=== PATIENT | male | born 1990 | race Hispanic/Latino ===

== ENCOUNTER 2017-07-20 12:40 | Emergency (ER) | payer MEDICAID, OTHER | END 2017-07-20 13:20 | disposition home or self-care (01) | LOC: EDH 12:40 | DX: F41.1 Generalized anxiety disorder (principal); Z72.0 Tobacco use; Z90.49 Acquired absence of other specified parts of digestive tract ==

== ENCOUNTER 2017-07-29 10:06 | Emergency (ER) | payer MEDICAID, OTHER | END 2017-07-29 11:33 | disposition home or self-care (01) | LOC: EDH 10:06 | DX: F41.1 Generalized anxiety disorder (principal); F45.8 Other somatoform disorders; Z72.0 Tobacco use ==

== ENCOUNTER 2018-01-26 22:28 | Emergency (ER) | payer MEDICAID | END 2018-01-26 23:37 | disposition home or self-care (01) | LOC: EDH 22:28 | DX: L03.316 Cellulitis of umbilicus (principal); F41.9 Anxiety disorder, unspecified; Z90.49 Acquired absence of other specified parts of digestive tract ==

== ENCOUNTER 2018-02-20 15:02 | Emergency (ER) | payer MEDICAID ==
[2018-02-20] MEDS ORDERED: DEXAMETHASONE SOD PHOSPHATE 10MG/ML 1ML VIAL ONE (15:35)
[2018-02-20] MEDS ORDERED: IPRATROPIUM/ALBUTEROL SULFATE 3 ML SOLUTION IH ONE (16:28)
== END 2018-02-20 17:12 | disposition home or self-care (01) ==
LOC: EDH 15:02
DX: J20.9 Acute bronchitis, unspecified (principal); F41.9 Anxiety disorder, unspecified; Z90.49 Acquired absence of other specified parts of digestive tract; Z72.0 Tobacco use
CPT/HCPCS: 71045; 94640; 96372; 99283; J1100

== ENCOUNTER 2019-04-03 12:44 | Emergency (ER) | payer MEDICAID, OTHER ==
[2019-04-03] MEDS ORDERED: MECLIZINE HCL 25 MG TABLET ONE (14:03)
== END 2019-04-03 14:42 | disposition home or self-care (01) ==
LOC: EDH 12:44
DX: S06.0X0A Concussion without loss of consciousness, initial encounter (principal); H81.399 Other peripheral vertigo, unspecified ear; F41.9 Anxiety disorder, unspecified; Z72.0 Tobacco use; X58.XXXA Exposure to other specified factors, initial encounter; Y93.89 Activity, other specified; Y92.89 Other specified places as the place of occurrence of the external cause; Y99.8 Other external cause status
CPT/HCPCS: 99282

== ENCOUNTER 2019-04-05 20:38 | Emergency (ER) | payer MEDICAID ==
[2019-04-05] MEDS ORDERED: KETOROLAC TROMETHAMINE 60 MG/2 ML VIAL ONE (23:06)
[2019-04-05] MEDS ORDERED: DEXAMETHASONE SOD PHOSPHATE 10MG/ML 1ML VIAL IM ONE (23:12)
== END 2019-04-06 00:10 | disposition home or self-care (01) ==
LOC: EDH 20:38
DX: M26.69 Other specified disorders of temporomandibular joint (principal); K21.9 Gastro-esophageal reflux disease without esophagitis; Z79.899 Other long term (current) drug therapy; Z90.49 Acquired absence of other specified parts of digestive tract
CPT/HCPCS: 96372 ×2; 99284; J1100; J1885

== ENCOUNTER 2019-05-22 15:03 | Emergency (ER) | payer MEDICAID | END 2019-05-22 15:48 | disposition left against medical advice (07) | LOC: EDH 15:07 | DX: R51 Headache (principal); H53.8 Other visual disturbances; K21.9 Gastro-esophageal reflux disease without esophagitis; Z90.49 Acquired absence of other specified parts of digestive tract; Z53.21 Procedure and treatment not carried out due to patient leaving prior to being seen by health care provider | CPT/HCPCS: 82948 ==

== ENCOUNTER → 2019-05-25 | Outpatient (CLI) | payer MEDICAID | END | disposition home or self-care (01) | LOC: RAH 05-22 12:50 | PROVIDERS: ATTEND Family Medicine | DX: R51 Headache (principal); H53.8 Other visual disturbances | CPT/HCPCS: 70450 ==

== ENCOUNTER 2019-12-17 19:40 | Emergency (ER) | payer MEDICAID ==
[2019-12-17 21:10] LABS: RAPID GROUP A STREP NEGATIVE (NEGATIVE)
[2019-12-17] MEDS ORDERED: ACETAMINOPHEN EXTRA STRENGTH 500 MG TABLET ONE (21:50)
== END 2019-12-17 22:52 | disposition home or self-care (01) ==
LOC: EDH 19:40
DX: J06.9 Acute upper respiratory infection, unspecified (principal); Z20.828 Contact with and (suspected) exposure to other viral communicable diseases; K21.9 Gastro-esophageal reflux disease without esophagitis; I10 Essential (primary) hypertension; Z90.49 Acquired absence of other specified parts of digestive tract; Z72.0 Tobacco use
CPT/HCPCS: 71045; 87426; 87804 ×2; 87880; 99284; U0003

== ENCOUNTER 2023-05-08 13:05 | Emergency (ER) | payer MEDICAID ==
[~2023-05-08] VITALS: Ht 165.1 cm; Wt 122.5 kg
[~2023-05-08 13:05] MED LIST: CYCL10TA16 PO; DICL35CA3 PO
[2023-05-08 15:31] LABS: APPEARANCE,URINE CLEAR (CLEAR); BILIRUBIN,URINE NEGATIVE (NEGATIVE); COLOR,URINE LIGHT-YELLOW (YELLOW); GLUCOSE, URINE (UA) NEGATIVE (NEGATIVE); KETONES,URINE NEGATIVE (NEGATIVE); LEUKOCYTE ESTERASE ,URINE NEGATIVE Leu/uL (NEGATIVE); NITRATE,URINE NEGATIVE (NEGATIVE); OCCULT BLOOD,URINE MODERATE (NEGATIVE); PROTEIN,URINE 300 mg/dL (NEGATIVE); UROBILINOGEN,URINE 0.2 mg/dL (0.2-1.0)
[2023-05-08 15:32] LABS: ADD UA MICROSCOPIC YES; BASOPHILS # (AUTO) 0.05 K/uL (0.00-0.20); BASOPHILS % (AUTO) 0.5 % (0.0-5.0); EOSINOPHILS # (AUTO) 0.13 K/uL (0.00-0.70); EOSINOPHILS % (AUTO) 1.4 % (0.0-8.0); HEMATOCRIT 48.5 % (42-54); IMMATURE GRANULOCYTE ABSOLUTE 0.07 K/uL (0-1); LYMPHOCYTES % (AUTO) 21.2 % (21.0-51.0); MEAN CORPUSCULAR HEMOGLOBIN 28.5 pg (27.0-33.0); MEAN CORPUSCULAR HGB CONC 33.6 g/dL (32.0-36.0); MEAN CORPUSCULAR VOLUME 84.9 fL (79-99); MONOCYTES # (AUTO) 0.7 K/uL (0.1-1.0); MONOCYTES % (AUTO) 7.4 % (3.0-13.0); NEUTROPHILS # (AUTO) 6.5 K/uL (1.8-7.7); NEUTROPHILS % (AUTO) 68.8 % (40.0-77.0); PLATELET COUNT (AUTO) 147 K/uL (130-400); RED BLOOD CELL COUNT(AUTO) 5.71 MIL/uL (4.50-6.20); RED CELL DISTRIBUTION WIDTH 13.4 % (11.0-15.5); WHITE BLOOD COUNT (AUTO) 9.4 K/uL (4.8-10.8)
[2023-05-08 15:35] LABS: BACTERIA,URINE RARE /HPF (None Seen); MUCUS,URINE RARE LPF (None Seen); WBC,URINE 0-1 /HPF (0-1)
[2023-05-08 15:39] LABS: CREATININE 1.3 mg/dL (0.5-1.5); POTASSIUM 3.9 mmol/L (3.5-5.1)
[2023-05-08 15:45] LABS: ALBUMIN 3.5 g/dL (3.5-5.0); BILIRUBIN,TOTAL 0.5 mg/dL (0.2-1.0); TOTAL PROTEIN, SERUM 7.5 g/dL (6.0-8.3)
[2023-05-08] MEDS ORDERED: IOHEXOL-350 75 ML VIAL IV ONE (15:51)
[2023-05-08] MEDS ORDERED: DIPH1TAB PO (16:47)
[2023-05-08 17:01] VITALS: BP 151/98; PULSE 90; RESP 18; O2SAT 99
== END 2023-05-08 17:09 | disposition home or self-care (01) ==
LOC: EDH 13:05
DX: K52.9 Noninfective gastroenteritis and colitis, unspecified (principal); F17.200 Nicotine dependence, unspecified, uncomplicated; Z79.899 Other long term (current) drug therapy; Z90.49 Acquired absence of other specified parts of digestive tract
CPT/HCPCS: 99285; 74177; 80053; 83690; 85025; 81001; 36415; Q9967

== ENCOUNTER 2023-09-11 18:34 | Emergency (ER) | payer MEDICAID, OTHER ==
[~2023-09-11] VITALS: Ht 165.1 cm; Wt 115.2 kg
[~2023-09-11 18:34] MED LIST changes: +DIPH1TAB PO
[2023-09-11 19:42] LABS: BASOPHILS # (AUTO) 0.05 K/uL (0.00-0.20); BASOPHILS % (AUTO) 0.5 % (0.0-5.0); EOSINOPHILS # (AUTO) 0.07 K/uL (0.00-0.70); EOSINOPHILS % (AUTO) 0.7 % (0.0-8.0); HEMATOCRIT 43.7 % (42-54); IMMATURE GRANULOCYTE ABSOLUTE 0.06 K/uL (0-1); LYMPHOCYTES # (AUTO) 1.7 K/uL (1.0-4.8); LYMPHOCYTES % (AUTO) 17.6 % (21.0-51.0); MEAN CORPUSCULAR HEMOGLOBIN 28.9 pg (27.0-33.0); MEAN CORPUSCULAR HGB CONC 33.4 g/dL (32.0-36.0); MEAN CORPUSCULAR VOLUME 86.4 fL (79-99); MONOCYTES # (AUTO) 0.6 K/uL (0.1-1.0); MONOCYTES % (AUTO) 6.1 % (3.0-13.0); NEUTROPHILS # (AUTO) 7.4 K/uL (1.8-7.7); NEUTROPHILS % (AUTO) 74.5 % (40.0-77.0); PLATELET COUNT (AUTO) 115 K/uL (130-400); RED BLOOD CELL COUNT(AUTO) 5.06 MIL/uL (4.50-6.20); WHITE BLOOD COUNT (AUTO) 9.9 K/uL (4.8-10.8)
[2023-09-11 19:52] LABS: CARBON DIOXIDE 26 mmol/L (21-32); CHLORIDE 105 mmol/L (101-111); GLOMERULAR FILTR. RATE CALC 44 mL/min (>90); GLUCOSE,RANDOM 118 mg/dL (70-105); POTASSIUM 3.8 mmol/L (3.5-5.1); SODIUM SERUM 139 mmol/L (136-145); UREA NITROGEN, BLOOD 19 mg/dL (7-18)
[2023-09-11 19:55] LABS: INR <= 0.93 (0.85-1.15); PROTHROMBIN TIME 10.8 SEC (9.6-11.6)
[2023-09-11 19:56] LABS: PARTIAL THROMBOPLASTIN TIME 37.9 SEC (26.3-35.5)
[2023-09-11 20:02] LABS: ALCOHOL, BLOOD < 3 mg/dL (0-10)
[2023-09-11] MEDS ORDERED: IOHEXOL 350 MG/ML 100ML INFUS..BTL IV ONE (21:18)
[2023-09-11] MEDS: 0.9%NACL 1000ML 1,000 ML IV ONE (23:07)
[2023-09-11] MEDS ORDERED: CYCL7.5T27 PO (23:09)
[2023-09-11] MEDS: HYDROCODONE/ACETAMINOPHEN 5/325 MG TAB PO ONE (23:11)
[2023-09-12 00:23] VITALS: BP 133/87; PULSE 84; RESP 17; O2SAT 97
== END 2023-09-12 00:29 | disposition home or self-care (01) ==
LOC: EDH 18:34
DX: S20.212A Contusion of left front wall of thorax, initial encounter (principal); S20.311A Abrasion of right front wall of thorax, initial encounter; R10.84 Generalized abdominal pain; R55 Syncope and collapse; R51.9 Headache, unspecified; Z79.899 Other long term (current) drug therapy; I10 Essential (primary) hypertension; Z90.49 Acquired absence of other specified parts of digestive tract; V89.2XXA Person injured in unspecified motor-vehicle accident, traffic, initial encounter; Y93.I9 Activity, other involving external motion; Y92.488 Other paved roadways as the place of occurrence of the external cause; Y99.8 Other external cause status
CPT/HCPCS: 36415; 70450; 71250; 72125; 74176; 80048; 84484; 85025; 85610; 85730; Q9967

== ENCOUNTER 2024-10-10 11:22 | Emergency (ER) | payer SELFPAY ==
[~2024-10-10] VITALS: Ht 165.1 cm; Wt 122.9 kg
[~2024-10-10 11:22] MED LIST changes: +CYCL7.5T27 PO
[2024-10-10] MEDS ORDERED: TRIAMCINOLONE ACETONIDE 40 MG/ML 1ML VIAL IM ONE (11:30)
--- NOTE | 2024-10-10 11:32 | ERN ---
General Chief Complaint: Lower Extremity Pain/Injury Stated Complaint: LEG PAIN Time Seen by MD: 11:24 Source: patient History of Present Illness Initial Comments Patient is a 33-year-old male coming in complaining of left leg pain. Per patient the pain started from his left gluteal region and radiates down the left leg. No fever no chills. Patient also states that this has been ongoing for about two weeks. Allergies: Coded Allergies: No Known Allergies (Unverified Allergy, Unknown, 07/23/22) No Known Drug Allergies (Unverified Allergy, Unknown, 04/06/19) Home Meds Active Scripts Cyclobenzaprine HCl (Cyclobenzaprine HCl) 7.5 Mg Tablet, 7.5 MG PO DAILYDINNER for 7 Days, #7 TAB Prov:ANGEL TEJADA 09/11/23 Diphenoxylate HCl/Atropine (Lomotil Tablet) 2.5 Mg-0.025 Mg Tablet, 1 EACH PO Q6HPRN PRN for diarrhea, #20 TAB Prov:LATONYA BRIAN MD 05/08/23 Cyclobenzaprine HCl (Flexeril) 10 Mg Tab, 10 MG PO TID for 10 Days, #30 TAB Prov:JR MOORE MD 03/06/21 Diclofenac Submicronized (Diclofenac) 35 Mg Capsule, 50 MG PO TID for 10 Days, #30 CAP Prov:JR MOORE MD 03/06/21 Past Medical History Past Medical History: No Pertinent History Past Surgical History: Appendectomy Surgical History Other: APPENDECTOMY 2009 Social History Social History: Smokers, Drugs ROS Dictation CONSTITUTIONAL: No chills, no fever, no weakness, no diaphoresis, no malaise. HEAD/FACE: No signs of trauma. EENT: No eye pain, no blurred vision, no tearing, no double vision, no ear pain, no ear discharge, no nose pain, no nasal congestion, no throat pain, no throat swelling, no mouth pain. RESPIRATORY: No cough, no orthopnea, no SOB, no stridor, no wheezing. CARDIOVASCULAR: No chest pain, no edema, no palpitations, no syncope. GASTROINTESTINAL/ABDOMINAL: No abdominal pain, no constipation, no diarrhea, no nausea, no vomiting. GENITOURINARY: No abnormal discharge, no dysuria, no frequent urination, no hematuria. No complaints of pain in the genitals. MUSCULOSKELETAL: No back pain, no gout, no joint pain, no joint swelling, no muscle pain, no muscle stiffness, no neck pain. INTEGUMENTARY: No change in color, no change in hair/nails, no dryness, no lesion, no lumps, no rash. NEUROLOGICAL/PSYCH: No anxiety, not depressed, no emotional problem, no headache, no numbness, no pre-existing deficit, no history of seizures, no tremors, no weakness. HEMATOLOGIC/LYMPHATIC: Not anemic, no history of blood clots, no apparent bleeding, no bruising, glands not swollen. All Systems Negative, Except as Noted. Physical Exam Physical Exam Dictation VITAL SIGNS: Reviewed. GENERAL APPEARANCE: Alert, oriented x3, no acute distress, obese. HEAD AND FACE: Non-traumatic. EYES: PERRL, pink conjunctivas, eyelid no trauma, anterior chamber clear. EARS: Pinnas intact and no signs of trauma or erythema. Ear canals clear and no discharge. TMs no erythema. NOSE: No discharge, no bleeding. OROPHARYNX: Mouth normal, teeth no caries, tongue pink. Pharynx clear, no erythema. Tonsils no exudates, no abscesses noted. Mucous membrane moist. NECK: Supple, non-tender, no thyromegaly, no masses, no JVD, no bruits. BREAST: Deferred. CHEST: No tenderness, no crepitus, no paradoxical movement, no retractions. LUNGS: Clear, well-ventilated, symmetric, no rales, no wheezing, no rhonchi, no stridor, good breath sounds bilaterally. HEART: Regular rate, regular rhythm, no murmur, no gallops. VASCULAR: No peripheral edema. ABDOMEN: Soft, positive bowel sounds, nondistended, no guarding, nontender, no rebound, no masses no hepatomegaly, no splenomegaly, no Raroyo's sign, no hernias. RECTAL: Deferred. GENITAL: Deferred. NEUROLOGICAL: Normal speech, gross motor function intact, gross sensory function intact. MUSCULOSKELETAL: Neck nontender, full range of motion, back nontender, full range of motion. EXTREMITIES: Nontender, full range of motion. Left piriformis muscle tenderness on palpation SKIN: Color pink, dry, no turgor, no rash, no lacerations, no abrasions, no contusions. LYMPHATICS: Deferred. Results Laboratory and Microbiology Labs Reviewed?: Yes MDM MDM: Differential diagnosis: Left-sided sciatica, leg strain, muscle strain, piriformis, Rationale: Tests considered and ordered secondary to shared decision making include: Previous outside records reviewed: Old ER visits. Risk of complication and/or morbidity or mortality of patient management: None Medications-Per medication reconciliation Need for hospitalization: Patient does not meet criteria for hospitalization. Patient is a 33-year-old gentleman coming in complaining of left leg pain. On physical exam there is tenderness in the piriformis muscle. Patient will be discharged in stable condition with a diagnosis of left-sided sciatica with piriformis muscle strain. ED Course Orders Procedure Category Date Status Time Orphenadrine Citrate PHA 10/10/24 Complete (Norflex) 11:30 Triamcinolone Acet PHA 10/10/24 Complete 40mg/Ml 1ml (Kenalog 11:30 Ketorolac PHA 10/10/24 Complete Tromethamine 30mg/Ml 11:30 Current Medications Medications (Trade) Dose Ordered Sig/Prieto Route PRN Reason Start Time Stop Time Status Last Admin Dose Admin Ketorolac Tromethamine (toRADol) 30 mg ONCE ONCE IM 10/10/24 11:30 10/10/24 11:36 DC Orphenadrine Citrate (Norflex) 60 mg ONCE ONCE IM 10/10/24 11:30 10/10/24 11:36 DC Triamcinolone Acetonide (Kenalog 40) 40 mg ONCE ONCE IM 10/10/24 11:30 10/10/24 11:36 DC Vital Signs Date Time Temp Pulse Resp B/P (MAP) Pulse Ox O2 Delivery O2 Flow Rate FiO2 10/10/24 12:09 98.4 103 20 154/94 98 Room Air* 0 21 10/10/24 11:23 98.4 103 20 154/94 99 0 DX & DISP Disposition: Discharge Departure Impression: Primary Impression: Left sided sciatica Additional Impression: Piriformis syndrome Condition: Stable Scripts Naproxen (Naproxen) 500 Mg Tablet 1 TAB PO BID for pain for 7 Days, #14 TAB 0 Refills Prov: BONI BERMEO MD 10/10/24 Methocarbamol (Robaxin) 750 Mg Tab 1 TAB PO BID for 7 Days, #14 TAB 0 Refills Prov: BONI BERMEO MD 10/10/24 Additional Instructions: FOLLOW-UP WITH PRIMARY CARE PROVIDER IN 1 TO 2 DAYS. TAKE MEDICATIONS DIRECTED HERE IN THE EMERGENCY ROOM. OKAY TO CONTINUE HOME MEDICATIONS UNLESS OTHERWISE DISCUSSED DURING YOUR VISIT IN THE EMERGENCY ROOM TODAY. RETURN TO YOUR NEAREST EMERGENCY ROOM IF SYMPTOMS WORSEN OR IF THERE IS NO IMPROVEMENT. CALL 911 IF YOU NEED IMMEDIATE ASSISTANCE. TAKE TYLENOL [id number] NEEDED AND IF NO CONTRAINDICATIONS ARE PRESENT. INCREASE ORAL HYDRATION. A WOUND CULTURE OR URINE CULTURE WAS ORDERED HERE IN THE EMERGENCY ROOM DEPARTMENT PLEASE FOLLOW-UP WITH PRIMARY CARE PROVIDER AND ADVISE THEM TO GET REPORTS FROM OUR FACILITY. IF YOU HAD ANY RADHA WRAP/SPLINTS THAT WERE APPLIED HERE, PLEASE DO NOT REMOVE THEM UNTIL YOU SEE YOUR PRIMARY CARE OR SPECIALTY. Referrals: Referrals: MAURA BARAHONA MD (PCP) Time of Disposition: 12:21 BONI BERMEO MD Oct 10, 2024 11:32
[2024-10-10] MEDS ORDERED: METH-662 PO (12:22)
[2024-10-10] MEDS ORDERED: NAPR-1194 PO (12:22)
[2024-10-10] MEDS: ORPHENADRINE 60MG/2ML IM ONE (12:23)
[2024-10-10 13:03] VITALS: BP 134/74; PULSE 92; RESP 20; TEMP 98.4; O2SAT 99
== END 2024-10-10 13:08 | disposition home or self-care (01) ==
LOC: EDH 11:22
DX: M54.32 Sciatica, left side (principal); F17.200 Nicotine dependence, unspecified, uncomplicated; Z90.49 Acquired absence of other specified parts of digestive tract; Z79.899 Other long term (current) drug therapy
CPT/HCPCS: 99284; 96372 ×2; J1885; J3301; J2360

== ENCOUNTER 2024-12-20 10:17 | Emergency (ER) | payer MEDICAID ==
[~2024-12-20] VITALS: Ht 167.6 cm; Wt 87.3 kg
[~2024-12-20 10:17] MED LIST changes: +METH-662 PO; +NAPR-1194 PO
[2024-12-20 10:50] VITALS: TEMP 98.7
--- NOTE | 2024-12-20 11:06 | EKG ---
[facility] Test Date: 2024-12-20 Test Time: 10:28:18 Pat Name: NAOMI FLORES Department: ED Room: Gender: M Certified Nuclear Medicine Technologist: [facility] : 1990 Requested By: ANGEL TEJADA Order Number: [id number] Reading MD: Eugene Sweet Measurements Intervals Ebony Rate: 87 P: 43 NE: 116 QRS: 28 QRSD: 103 T: 17 QT: 330 QTc: 398 Interpretive Statements Sinus rhythm No previous ECG available for comparison Electronically Signed On 12-20-2024 15:35:37 CDT by Eugene Sweet Please click the below link to view image of tracing.
[2024-12-20] MEDS ORDERED: KETO10TA2 PO (11:21)
[2024-12-20] MEDS ORDERED: METH-662 PO (11:21)
--- NOTE | 2024-12-20 11:21 | ERN ---
General Chief Complaint: Back Pain or Injury Stated Complaint: LOWER BACK PAIN Time Seen by : 10:19 Time Seen by Midlevel: 10:19 Source: patient History of Present Illness Initial Comments Patient is a 34-year-old male presenting to the emergency department for evaluation of low back pain. Patient has already been seen multiple times for the same complaint. He has had multiple x-rays and CT scans and has been told he needs an MRI. He states his back pain started two months ago after her a night owl where he was arrested for a DUI. He states that after this night his pain started. He has not seen a specialist for this issue. He has an appointment scheduled with his primary care doctor today at 12:00 p.m.. He denies any urinary/bowel incontinence. Denies any numbness or weakness to bilateral lower extremities. Patient was ambulatory in the lobby and was able to ambulate back into the room. Patient states he has difficulty getting out of a chair. Allergies: Coded Allergies: No Known Allergies (Unverified Allergy, Unknown, 07/23/22) No Known Drug Allergies (Unverified Allergy, Unknown, 04/06/19) Home Meds Active Scripts Methocarbamol (Robaxin) 750 Mg Tab, 1 TAB PO BID for 30 Days, #60 TAB 0 Refills Prov:ANGEL TEJADA 12/20/24 Ketorolac Tromethamine (Ketorolac Tromethamine) 10 Mg Tablet, 1 TAB PO TID for pain for 5 Days, #15 TAB 0 Refills Prov:ANGEL TEJADA 12/20/24 Naproxen (Naproxen) 500 Mg Tablet, 1 TAB PO BID for pain for 7 Days, #14 TAB 0 Refills Prov:BONI BERMEO MD 10/10/24 Methocarbamol (Robaxin) 750 Mg Tab, 1 TAB PO BID for 7 Days, #14 TAB 0 Refills Prov:BONI BERMEO MD 10/10/24 Cyclobenzaprine HCl (Cyclobenzaprine HCl) 7.5 Mg Tablet, 7.5 MG PO DAILYDINNER for 7 Days, #7 TAB Prov:ANGEL TEJADA 09/11/23 Diphenoxylate HCl/Atropine (Lomotil Tablet) 2.5 Mg-0.025 Mg Tablet, 1 EACH PO Q6HPRN PRN for diarrhea, #20 TAB Prov:LATONYA BRIAN MD 05/08/23 Cyclobenzaprine HCl (Flexeril) 10 Mg Tab, 10 MG PO TID for 10 Days, #30 TAB Prov:JR MOORE MD 03/06/21 Diclofenac Submicronized (Diclofenac) 35 Mg Capsule, 50 MG PO TID for 10 Days, #30 CAP Prov:JR MOORE MD 03/06/21 Past Medical History Past Medical History: Hypertension Medical History Other: SIATIC PAIN Past Surgical History: Unknown Surgical History Other: APPENDECTOMY 2009 Social History Social History: Smokers, Drugs ROS Dictation CONSTITUTIONAL: Negative except for HPI HEAD/FACE: Negative except for HPI EENT: Negative except for HPI RESPIRATORY: Negative except for HPI GASTROINTESTINAL/ABDOMINAL: Negative except for HPI GENITOURINARY: Negative except for HPI MUSCULOSKELETAL: Negative except for HPI INTEGUMENTARY: Negative except for HPI NEUROLOGICAL/PSYCH: Negative except for HPI HEMATOLOGIC/LYMPHATIC: Negative except for HPI All Systems Negative, Except as noted above. 13 point review of systems assessed and all negative except for above. Physical Exam Physical Exam Dictation Vital Signs reviewed General Appearance: Alert, oriented x 3, no acute distress, well developed, nourished. Head and Face: non-traumatic. Eyes: PERRL, pink conjunctivas, eyelid no trauma, anterior chamber with arcus senilis. Ears: Pinnas intact and no signs of trauma or erythema ear canals clear and no discharge TM no erythema Nose: No discharge, no bleeding. Oropharynx: Mouth normal, tongue pink, pharynx clear,no erythema, tonsils no exudates, no abscesses noted, mucous membrane moist Neck: Supple, non-tender, no thyromegaly, no masses, no JVD, no bruits Breast:Deferred Chest:No tenderness, no crepitus, no paradoxical movement, no retractions Lungs:Clear, well-ventilated, symmetric, no rales, no wheezing, no rhonchi, no stridor, good breath sounds bilaterally Heart: Regular rate, regular rhythm, no murmur, no gallops Vascular: no peripheral edema, Abdomen: Soft, positive bowel sounds, nondistended, no guarding, nontender, no rebound, no masses no hepatomegaly, no splenomegaly, no Arroyo's sign, no hernias. Rectal: Deferred Genital: Deferred Neurological: Normal speech, motor function intact, sensory function intact Musculoskeletal: Neck nontender, full range of motion, back nontender, full range of motion, Extremities: nontender, full range of motion Skin: Color pink, dry, no turgor, no rash, no lacerations, no abrasions, no contusions. Lymphatic: Deferred MDM MDM: Patient is a 34-year-old male presenting to the emergency department for evaluation of low back pain. Patient has already been seen multiple times for the same complaint. He has had multiple x-rays and CT scans and has been told he needs an MRI. He states his back pain started two months ago after her a night owl where he was arrested for a DUI. He states that after this night his pain started. He has not seen a specialist for this issue. He has an appointment scheduled with his primary care doctor today at 12:00 p.m.. He denies any urinary/bowel incontinence. Denies any numbness or weakness to b ilateral lower extremities. Patient was ambulatory in the lobby and was able to ambulate back into the room. Patient states he has difficulty getting out of a chair. On physical examination patient has no midline tenderness to the lumbar region. He appears to be in mild distress secondary to pain. I did offer x-rays and CT scans but patient states he has already had multiple of the these imaging performed. He would like pain medication and he will be following up with his primary care doctor at 12:00 p.m. today for an outpatient MRI. Patient has no red flag symptoms on physical examination he does have a positive straight leg test on the left side so his symptoms might be related sciatica however I advised to follow up outpatient for an MRI. Patient agrees with this plan and is comfortable for discharge. The patient was given Dilaudid and Norflex in the ER Differential diagnosis: Lumbar strain, sciatica, spinal stenosis There are no social concerns with this patient. Prescription drug management Prescriptions will include: Toradol Medical management and examination interpretation discussions were had by me with other qualified healthcare professionals as indicated for the patient's care. ED Course Orders Procedure Category Date Status Time 12 Lead Ekg Tracing- EKG 12/20/24 Complete Technical 10:34 Hydromorphone 1 Mg PHA 12/20/24 Complete Inj (Dilaudid 1mg Inj 11:00 Orphenadrine Citrate PHA 12/20/24 Complete (Norflex) 11:00 Current Medications Medications (Trade) Dose Ordered Sig/Prieto Route PRN Reason Start Time Stop Time Status Last Admin Dose Admin Hydromorphone HCl (DiLAUDid 1MG INJ) 1 mg ONCE ONCE IM 12/20/24 11:00 12/20/24 11:01 DC Orphenadrine Citrate (Norflex) 60 mg ONCE ONCE IM 12/20/24 11:00 12/20/24 11:01 DC Vital Signs Date Time Temp Pulse Resp B/P (MAP) Pulse Ox O2 Delivery O2 Flow Rate FiO2 12/20/24 10:23 98.8 103 20 179/125 98 Room Air 0 DX & DISP Disposition: Discharge Departure Impression: Primary Impression: Lumbar pain Condition: Stable Scripts Methocarbamol (Robaxin) 750 Mg Tab 1 TAB PO BID for 30 Days, #60 TAB 0 Refills Prov: ANGEL TEJADA 12/20/24 Ketorolac Tromethamine (Ketorolac Tromethamine) 10 Mg Tablet 1 TAB PO TID for pain for 5 Days, #15 TAB 0 Refills Prov: ANGEL TEJADA 12/20/24 Referrals: MAURA BARAHONA MD (PCP) Time of Disposition: 11:20 I have reviewed the case, and I agree with, Diagnosis and Plan ANGEL TEJADA Dec 20, 2024 11:21
[2024-12-20] MEDS: ORPHENADRINE 60MG/2ML IM ONE (11:28)
[2024-12-20 11:56] VITALS: BP 154/96; PULSE 96; RESP 20; O2SAT 97
== END 2024-12-20 12:03 | disposition home or self-care (01) ==
LOC: EDH 10:17
DX: M54.50 Low back pain, unspecified (principal); F17.200 Nicotine dependence, unspecified, uncomplicated; I10 Essential (primary) hypertension; Z79.899 Other long term (current) drug therapy; Z90.49 Acquired absence of other specified parts of digestive tract
CPT/HCPCS: 99284; 96372 ×2; 93005; J1171; J2360